=== PATIENT | male | born 1990 | race Two or more races ===

== ENCOUNTER 2016-11-14 17:07 | Emergency (ER) | payer SELFPAY ==
[~2016-11-14] VITALS: Ht 175.3 cm; Wt 81.6 kg
[2016-11-14 17:14] VITALS: BP 141/74
== END 2016-11-14 20:10 | disposition home or self-care (01) ==
LOC: ER 17:13
DX: S93.401A Sprain of unspecified ligament of right ankle, initial encounter (principal); W10.8XXA Fall (on) (from) other stairs and steps, initial encounter; Y93.89 Activity, other specified; Y99.8 Other external cause status; Y92.89 Other specified places as the place of occurrence of the external cause
CPT/HCPCS: 29515; 73610; 73630